=== PATIENT | female | born 1965 | race Caucasian/White ===

== ENCOUNTER 2016-11-24 20:28 | Emergency (ER) | payer OTHER ==
[2016-11-24 21:01] VITALS: RESP 16; TEMP 97.9; O2SAT 96
[2016-11-24 22:04] VITALS: BP 135/81; PULSE 63
== END 2016-11-24 21:58 | disposition home or self-care (01) | DRG 556 ==
LOC: ED 20:28
DX: M25.572 Pain in left ankle and joints of left foot (principal); W10.9XXA Fall (on) (from) unspecified stairs and steps, initial encounter
CPT/HCPCS: 73610; 73630; 99282